=== PATIENT | female | born 1960 | race Hispanic/Latino ===

== ENCOUNTER 2017-08-26 04:12 | Inpatient (IN) | payer BC ==
[2017-08-26 04:14] VITALS: BMI 32.3
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
--- NOTE | 2017-08-26 05:31 | PCM.BM ---
<Kamryn Oliva - Last Filed: 08/26/17 05:28> Treatment Plan Problems - Problems identified on initial assessmt Suicide Attempt/S/I Date Initiated: 08/26/17 Time Initiated: 05:10 Assessment reference: NA Status: Active Depression Date Initiated: 08/26/17 Time Initiated: 05:10 Assessment reference: NA Status: Active Treatment assets and liabiliti Patient Assests: adapts well, cooperative, educated, insightful, motivated, resourceful, self-reliant, ADL independent, physically healthy, good support system, negotiates basic needs, good past tx response, financial stabiity, cognitively intact, good interpersonal skills Patient Liabilities: other ( has Stage 4 Sm. bowel Ca) - Milieu Protocol Maintain good personal hygiene: daily Encourage regular showers, daily Remind patient to perform daily oral care, daily Assist patient to perform ADL's Conduct patient checks and document Observation sheet: Q15 minutes Maintain personal safety: every shift Educate patient to report safety concerns to staff, every shift Monitor environment for contraband/sharps Medication safety: Monitor for expected outcome, potential side effects: every shift, Assess barriers to learning: every shift, Assess readiness for medication education: every shift <Rowan Huston - Last Filed: 08/27/17 08:54> - Diagnosis (1) Major depression Status: Acute Interventions: 08/27/17 08:54 * Assess/adjust medications daily and /or as needed * See patient on an individual basis 7x/week to assess symptoms of depression * Monitor for side effects & effectiveness of medications * <Clementina Wesotn - Last Filed: 08/27/17 11:05> Family Contact Family involvement: Family/SO is involved Family contact: Patient declines to allow family contact at present - Goals for Treatment Patient goals for treatment: "I want to go home soon." Discharge/Continuing Care - Education Needs Education Needs: Patient Medication, Patient Coping Skills - Discharge Discharge Criteria: Tolerates medication w/o severe side effects, Free of Suicidal thoughts Discharge to:: Home, With Family - Treatment Team Participation Discussed with Family/SO: No Was Patient/Family/SO present at Treatment Team Meeting: Yes
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
[2017-08-26] MEDS: Venlafaxine 75 mg ER Cap PO SCH (13:09)
[2017-08-27] MEDS: Venlafaxine 75 mg ER Cap PO SCH (09:27)
--- NOTE | 2017-08-27 12:11 | PCM.PYCHPN ---
Psychiatric Progress Note - Psychiatric Progress Note Patient seen today, length of contact: 16 min Patient Chief Complaint: "I am not sure" Problems Identified/Issues Discussed: The pt is seen, chart reviewed and case discussed She met with the team as well. Still depressed and anxious but feels like she is on the right direction Has vague SI but no plans or intention and will follow safety plan. No SEs from meds In touch with family Medication Change: Yes (Increase Effexor XR daily) Medical Record Reviewed: Yes Mental Status Examination - Cognitive Function Orientation: Person, Place, Situation, Time Memory: Intact Attention: WNL Concentration: Poor Association: WNL Fund of Knowledge: WNL - Mood Mood: Depressed, Anxious - Affect Affect: Constricted - Speech Speech: Appropriate, Soft - Formal Thought Process Formal Thought Process: No Impairment - Suicidal Ideation Suicidal Ideation: Yes Plan: No plan, no intention and contracts for safety - Homicidal Ideation Homicidal Ideation: No Goal/Treatment Plan - Goal/Treatment Plan Need for Continued Stay: Severe depression anxiety, Discharge may exacerbated symptoms, Severe functional impairment Progress Toward Problem(s) and Goals/Treatment Plan: Effexor XR 75, then 75+37.5, then 150, then 150+75 (on d/c) Increased Abilify to 10 mg Consider [place] (anti-suicide, mood stabilizagtion) Prn medications All risks, benefits and alternatives of medications, including no medications, discussed and the patient understood and agreed. Attend groups and activities Individual therapy Psychoeducation and support Encourage compliance with meds and after care Refer to outpatient program or private psychiatrist Add outpatient indiv psychotherapy! She agreed Teach healthy lifestyle methods, i.e. diet, exercise, meditation Estimated Date of D/C: 08/30/16
[2017-08-28] MEDS ORDERED: Venlafaxine 37.5 mg ER Cap PO SCH (10:00)
[2017-08-28] MEDS: Venlafaxine 75 mg ER Cap PO SCH (10:19)
[2017-08-28] MEDS ORDERED: Influenza Vaccine 60 mcg/0.5 mL SYR (4YR UP) IM ONE (10:25)
[2017-08-28] MEDS ORDERED: Pneumococcal 23-Valent Vaccine IM ONE (10:30)
--- NOTE | 2017-08-28 12:11 | PCM.PYCHPN ---
Psychiatric Progress Note - Psychiatric Progress Note Patient seen today, length of contact: 17 min Patient Chief Complaint: "I am not well" Problems Identified/Issues Discussed: The pt is seen, chart reviewed and case discussed The patient is still feeling depressed, at times hopeless. No acute suicide plans or intention but has vague ideation. Appetite is okay, energy is slowly getting better but her sleep was not good. Effexor increased today and will be increased again tomorrow and the other day. Aftercare discussed; will resume his psychiatrist but also add individual psychotherapy. CBT used Medication Change: Yes (Increase Effexor XR daily) Medical Record Reviewed: Yes Mental Status Examination - Cognitive Function Orientation: Person, Place, Situation, Time Memory: Intact Attention: WNL Concentration: Poor Association: WNL Fund of Knowledge: WNL - Mood Mood: Depressed, Anxious - Affect Affect: Constricted - Speech Speech: Appropriate, Soft - Formal Thought Process Formal Thought Process: No Impairment - Suicidal Ideation Suicidal Ideation: Yes Plan: No plans or intentions. Will follow safety plan - Homicidal Ideation Homicidal Ideation: No Goal/Treatment Plan - Goal/Treatment Plan Need for Continued Stay: Severe depression anxiety, Discharge may exacerbated symptoms, Severe functional impairment Progress Toward Problem(s) and Goals/Treatment Plan: Effexor XR 75+37.5 now, then 150, then 150+75 (on d/c) Increased Abilify to 10 mg Consider [place] (anti-suicide, mood stabilization) Prn medications All risks, benefits and alternatives of medications, including no medications, discussed and the patient understood and agreed. Attend groups and activities Individual therapy Psychoeducation and support Encourage compliance with meds and after care Refer to outpatient program or private psychiatrist Add outpatient indiv psychotherapy! She agreed Teach healthy lifestyle methods, i.e. diet, exercise, meditation Estimated Date of D/C: 08/31/16 If changed, why: Still very depressed
[2017-08-28 21:03] LABS: SQUAMOUS EPITHIAL 6 /hpf (0-5); URINE BILIRUBIN NEGATIVE (NEGATIVE); URINE BLOOD 3+ (NEGATIVE); URINE CALCIUM OXALATE CRYSTALS MOD /hpf (<OCC); URINE CLARITY Hazy (Clear); URINE COLOR Red (YELLOW); URINE GLUCOSE (UA) NORMAL (Normal); URINE LEUKOCYTE ESTERASE TRACE Leu/uL (Negative); URINE NITRATE NEGATIVE (NEGATIVE); URINE PROTEIN 2+ mg/dL (NEGATIVE); URINE UROBILINOGEN NORMAL mg/dL (0.2-1.0)
[2017-08-29] MEDS: Venlafaxine 150 mg ER Cap PO SCH (09:52)
--- NOTE | 2017-08-29 14:53 | PCM.PYCHPN ---
Psychiatric Progress Note - Psychiatric Progress Note Patient seen today, length of contact: 16 min Patient Chief Complaint: "I am tired" Problems Identified/Issues Discussed: The pt is seen, chart reviewed and case discussed The patient is still feeling depressed, at times hopeless. No acute suicide plans or intention but has vague ideation and it's "getting better". How to cope discussed. Effexor increased today to 150 mg and will be increased again tomorrow and the other day until 225 mg/d for now Aftercare discussed; will resume his psychiatrist but also add individual psychotherapy. CBT used again Socially she keeps to self - discussed Medication Change: Yes (Increase Effexor XR daily) Medical Record Reviewed: Yes Mental Status Examination - Cognitive Function Orientation: Person, Place, Situation, Time Memory: Intact Attention: WNL Concentration: Poor Association: WNL Fund of Knowledge: WNL - Mood Mood: Depressed, Anxious - Affect Affect: Constricted (even a little blunted at times) - Speech Speech: Appropriate, Soft - Formal Thought Process Formal Thought Process: No Impairment - Suicidal Ideation Suicidal Ideation: Yes - Homicidal Ideation Homicidal Ideation: No Goal/Treatment Plan - Goal/Treatment Plan Need for Continued Stay: Severe depression anxiety, Discharge may exacerbated symptoms, Severe functional impairment Progress Toward Problem(s) and Goals/Treatment Plan: Effexor XR now 150, then 150+27.5 and then 225 (on d/c) Abilify to 10 mg Consider [place] (anti-suicide, mood stabilization) Prn medications All risks, benefits and alternatives of medications, including no medications, discussed and the patient understood and agreed. Attend groups and activities Individual therapy Psychoeducation and support Encourage compliance with meds and after care Refer to outpatient program or private psychiatrist Add outpatient indiv psychotherapy! She agreed Teach healthy lifestyle methods, i.e. diet, exercise, meditation Estimated Date of D/C: 08/31/16
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
[2017-08-29 20:12] LABS: BASO # 0.1 K/uL (0.0-0.2); BASO % 0.9 % (0.0-2.0); EOS # 0.1 K/uL (0.0-0.7); EOS % 0.6 % (0.0-4.0); HEMOGLOBIN 13.3 g/dL (11.0-16.0); LYMPH # 1.4 K/uL (1.0-4.3); LYMPH % 15.5 % (20.0-40.0); MEAN CELL VOLUME 84.3 fL (81.0-99.0); MEAN CORPUSCULAR HEMOGLOBIN 29.4 pg (27.0-31.0); MEAN CORPUSCULAR HGB CONC 34.9 g/dL (33.0-37.0); MEAN PLATELET VOLUME 8.1 fL (7.2-11.7); MONO # 0.8 K/uL (0.0-0.8); MONO % 9.4 % (0.0-10.0); NEUT # 6.6 K/uL (1.8-7.0); NEUT % 73.6 % (50.0-75.0); RBC 4.51 Mil/uL (3.80-5.20); RED CELL DISTRIBUTION WIDTH 13.4 % (11.5-14.5); WHITE BLOOD COUNT 8.9 K/uL (4.8-10.8)
[2017-08-29 20:34] LABS: ALB/GLOB RATIO 1.3 (1.0-2.1); ALBUMIN 3.8 g/dL (3.5-5.0); ALT/SGPT 56 U/L (9-52); AST/SGOT 32 U/L (14-36); BLOOD UREA NITROGEN 10 mg/dL (7-17); CALCIUM 9.2 mg/dl (8.6-10.4); GFR AFRICAN-AMERICAN > 60; GFR NON-AFRICAN AMERICAN > 60; MAGNESIUM 1.9 mg/dL (1.6-2.3)
[2017-08-30 01:27] LABS: BARBITURATES, UR NEGATIVE (NEGATIVE); OPIATES, UR NEGATIVE (NEGATIVE); PHENCYCLIDINE, UR NEGATIVE (NEGATIVE)
[2017-08-30 07:24] LABS: HDL CHOLESTEROL 37 mg/dL (30-70)
[2017-08-30 07:35] LABS: LDL CHOLESTEROL 102 mg/dL (0-129)
[2017-08-30] MEDS ORDERED: Venlafaxine 37.5 mg ER Cap PO SCH (10:00)
[2017-08-30] MEDS: Venlafaxine 150 mg ER Cap PO SCH (10:07)
--- NOTE | 2017-08-30 12:50 | CARD ---
APPROVED REPORT EKG Measurement Heart [id number] <Conclusion> Sinus rhythm Cannot rule out Inferior infarct, age undetermined Abnormal ECG
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
--- NOTE | 2017-08-30 20:07 | CP.PCM.PCO ---
Physician Communication Note - Physician Communication Note Physician Communication Note: See above
--- NOTE | 2017-08-30 22:17 | PCM.PYCHPN ---
Psychiatric Progress Note - Psychiatric Progress Note Patient seen today, length of contact: 16 min Patient Chief Complaint: "I am OK" Problems Identified/Issues Discussed: The pt is seen, chart reviewed and case discussed Her family visited and found her still depressed and even suspected she was hiding her real thoughts about suicide The pt had attempted suicide and her family believes her psychiatrist was not helpful They agree with therapy and more frequent visits. PT, too agrees, but she is aloof and somewhat evasive She is OOB and is observed to be slightly more animated when she was playing with other patients, but spends most of her time in bed sleeping or just lying down. Affect is still flat and odd. She denies acute SI but admits to being depressed. She claims her children is the reason she stays alive. No plans No delusions or halluc. She agreed to increase Effox. one last time and add [place] to augment (and as a nj precaution) Risks discussed - understood Medication Change: Yes (Increase Effexor XR daily, add lithium) Medical Record Reviewed: Yes Mental Status Examination - Cognitive Function Orientation: Person, Place, Situation, Time Memory: Intact Attention: WNL Concentration: Poor Association: WNL Fund of Knowledge: WNL - Mood Mood: Depressed, Anxious - Affect Affect: Blunted - Speech Speech: Appropriate, Soft - Formal Thought Process Formal Thought Process: No Impairment - Suicidal Ideation Suicidal Ideation: Yes - Homicidal Ideation Homicidal Ideation: No Goal/Treatment Plan - Goal/Treatment Plan Need for Continued Stay: Severe depression anxiety, Discharge may exacerbated symptoms, Severe functional impairment Progress Toward Problem(s) and Goals/Treatment Plan: Effexor XR tomorrow and on: 225 mg/d Abilify to 10 mg Started moderate dose [place] (anti-suicide, mood stabilization) Prn medications All risks, benefits and alternatives of medications, including no medications, discussed and the patient understood and agreed. Attend groups and activities Individual therapy Psychoeducation and support Encourage compliance with meds and after care Refer to outpatient program or private psychiatrist Add outpatient indiv psychotherapy! She agreed Teach healthy lifestyle methods, i.e. diet, exercise, meditation Estimated Date of D/C: 09/03/16 If changed, why: Very depressed still
[2017-08-31] MEDS: Venlafaxine 150 mg ER Cap PO SCH (09:39)
[2017-08-31] MEDS: Venlafaxine 75 mg ER Cap PO SCH (10:04)
--- NOTE | 2017-08-31 12:41 | PCM.PYCHPN ---
Psychiatric Progress Note - Psychiatric Progress Note Patient seen today, length of contact: 20 min Patient Chief Complaint: "I am OK" Problems Identified/Issues Discussed: The pt is seen, chart reviewed and case discussed She seems to have mild catatonic sxs today: in bed, not leaving for meals, affect flat, not talking unless spoken to. Ativan 1 mg TID started. Effexor XR is now 225 mg [place] was also started yesterday Denies suicidal ideation but she is not reliable, she is checked every 15 minutes and more . Medication Change: Yes (see HPI) Medical Record Reviewed: Yes Mental Status Examination - Cognitive Function Orientation: Person, Place, Situation, Time Memory: Intact Attention: Poor Concentration: Poor Association: WNL Fund of Knowledge: WNL - Mood Mood: Depressed, Anxious - Affect Affect: Flat - Speech Speech: Appropriate, Soft - Formal Thought Process Formal Thought Process: No Impairment - Suicidal Ideation Suicidal Ideation: No - Homicidal Ideation Homicidal Ideation: No Goal/Treatment Plan - Goal/Treatment Plan Need for Continued Stay: Severe depression anxiety, Discharge may exacerbated symptoms, Severe functional impairment Progress Toward Problem(s) and Goals/Treatment Plan: Effexor XR tomorrow and on: 225 mg/d Abilify to 10 mg Ativan for catatonic sxs Started moderate dose [place] (anti-suicide, mood stabilization) Prn medications All risks, benefits and alternatives of medications, including no medications, discussed and the patient understood and agreed. Attend groups and activities Individual therapy Psychoeducation and support Encourage compliance with meds and after care Refer to outpatient program or private psychiatrist Add outpatient indiv psychotherapy! She agreed Teach healthy lifestyle methods, i.e. diet, exercise, meditation Estimated Date of D/C: 09/03/16
[2017-09-01] MEDS: Venlafaxine 150 mg ER Cap PO SCH (09:40)
[2017-09-01] MEDS: Venlafaxine 75 mg ER Cap PO SCH (09:40)
--- NOTE | 2017-09-01 17:13 | PCM.PYCHPN ---
Psychiatric Progress Note - Psychiatric Progress Note Patient seen today, length of contact: 15 minutes Patient Chief Complaint: I feel little lethargic but I feel better. Problems Identified/Issues Discussed: Patient seen, chart reviewed, case discussed with the staff. Issues related to illness and treatment were discussed with the patient. Reported compliant with treatment with no adverse affects. Patient appeared better but still has little catatonia. Aftercare discussed with the patient. Patient will continue with her private psychiatrist outside. At the time of evaluation, patient was awake alert and oriented 3, had no delusions, no auditory or visual hallucinations, no suicidal ideations or homicidal ideations. Medical Problems: None reported Diagnostic Results: Reviewed DSM 5 Symptoms Update: Improving with treatment Medication Change: No Medical Record Reviewed: Yes Consults ordered or reviewed: Review Mental Status Examination - Cognitive Function Orientation: Person, Place, Situation, Time Memory: Intact Attention: WNL Concentration: WNL Association: [facility] Fund of Knowledge: [facility] Decription of patient's judgement and insights: Fair - Mood Mood: Depressed (Less than before) - Affect Affect: Depressed - Speech Speech: Appropriate - Formal Thought Process Formal Thought Process: No Impairment Psychotic Thoughts and Behaviors: None - Suicidal Ideation Suicidal Ideation: No - Homicidal Ideation Homicidal Ideation: No Goal/Treatment Plan - Goal/Treatment Plan Need for Continued Stay: Remain at risks for inpatient hospitalization, Discharge may exacerbated symptoms, Severe functional impairment Progress Toward Problem(s) and Goals/Treatment Plan: Patient education Supportive therapy Continue treatment as before After discharge from the hospital, patient will have follow-up with her private psychiatrist outside. Estimated Date of D/C: 09/03/16 - Smoking Cessation Smoking Cessation Initiated: No
[2017-09-02] MEDS: Venlafaxine 150 mg ER Cap PO SCH (09:50)
[2017-09-02] MEDS: Venlafaxine 75 mg ER Cap PO SCH (09:51)
--- NOTE | 2017-09-02 13:17 | PCM.PYCHPN ---
Psychiatric Progress Note - Psychiatric Progress Note Patient seen today, length of contact: 15 minutes Patient Chief Complaint: I feel depressed and lethargic. Problems Identified/Issues Discussed: Patient seen, chart reviewed, case discussed with the staff. Issues related to illness and treatment were discussed with the patient. Reported compliant with treatment with no adverse affects. Patient reported still feeling depressed and lethargic. According to staff patient was isolative, withdrawn and confined to her room. Encouraged patient to come out of her bed attend groups and other activities on the unit. Aftercare discussed with the patient. Patient will continue with her private psychiatrist outside. At the time of evaluation, patient was awake alert and oriented 3, had no delusions, no auditory or visual hallucinations, no suicidal ideations or homicidal ideations. Medical Problems: None reported Diagnostic Results: Reviewed DSM 5 Symptoms Update: Some improvement with treatment Medication Change: No Medical Record Reviewed: Yes Consults ordered or reviewed: Review Mental Status Examination - Cognitive Function Orientation: Person, Place, Situation, Time Memory: Intact Attention: WNL Concentration: WNL Association: [facility] Fund of Knowledge: [facility] Decription of patient's judgement and insights: Fair - Mood Mood: Depressed (Less than before) - Affect Affect: Depressed - Speech Speech: Appropriate - Formal Thought Process Formal Thought Process: No Impairment Psychotic Thoughts and Behaviors: None - Suicidal Ideation Suicidal Ideation: No - Homicidal Ideation Homicidal Ideation: No Goal/Treatment Plan - Goal/Treatment Plan Need for Continued Stay: Remain at risks for inpatient hospitalization, Discharge may exacerbated symptoms, Severe functional impairment Progress Toward Problem(s) and Goals/Treatment Plan: Patient education Supportive therapy Continue treatment as before After discharge from the hospital, patient will have follow-up with her private psychiatrist outside. Estimated Date of D/C: 09/03/16 - Smoking Cessation Smoking Cessation Initiated: No
[2017-09-03 06:31] VITALS: O2SAT 97
[2017-09-03] MEDS: Venlafaxine 150 mg ER Cap PO SCH (09:50)
--- NOTE | 2017-09-03 10:52 | PCM.BM ---
<JuanClementina Kee - Last Filed: 09/03/17 10:52> Treatment Plan Problems - Problems identified on initial assessmt Suicide Attempt/S/I Date Initiated: 08/26/17 Time Initiated: 05:10 Assessment reference: NA Status: Active Depression Date Initiated: 08/26/17 Time Initiated: 05:10 Assessment reference: NA Status: Active Treatment assets and liabiliti Patient Assests: adapts well, cooperative, educated, insightful, motivated, resourceful, self-reliant, ADL independent, physically healthy, good support system, negotiates basic needs, good past tx response, financial stabiity, cognitively intact, good interpersonal skills Patient Liabilities: other ( has Stage 4 Sm. bowel Ca) - Milieu Protocol Maintain good personal hygiene: daily Encourage regular showers, daily Remind patient to perform daily oral care, daily Assist patient to perform ADL's Conduct patient checks and document Observation sheet: Q15 minutes Maintain personal safety: every shift Educate patient to report safety concerns to staff, every shift Monitor environment for contraband/sharps Medication safety: Monitor for expected outcome, potential side effects: every shift, Assess barriers to learning: every shift, Assess readiness for medication education: every shift Milieu Narrative: Patient education Supportive therapy Continue treatment as before After discharge from the hospital, patient will have follow-up with her private psychiatrist outside. Family Contact Family involvement: Family/SO is involved Family contact: Patient agrees to contact Family contact name: Mayra Stafford-daughter Family contacted how many times per week?: 2 Family contact comment: "I believe my mother needs to be hospitalized for a longer period of time. I'm afraid she will hurt herself." - Goals for Treatment Patient goals for treatment: "I need help." Patient's family/SO goals for treatment: "We want our mother to not be suicidal when she is discharged." Discharge/Continuing Care - Education Needs Education Needs: Patient Medication, Patient Coping Skills - Discharge Discharge Criteria: Tolerates medication w/o severe side effects, Free of Suicidal thoughts Discharge to:: Home, With Family - Treatment Team Participation Patient/Family/SO Statement: Patient education Supportive therapy Continue treatment as before After discharge from the hospital, patient will have follow-up with her private psychiatrist outside. Discussed with Family/SO: No Was Patient/Family/SO present at Treatment Team Meeting: Yes Treatment Plan Review - Problem Suicide Attempt/S/I Time Initiated: 05:10 Depression Time Initiated: 05:10 - Discharge / Continuing Care Discharge to:: Home, With Family Behavioral Health Services: Outpatient therapy Health Needs: Medications/Rx <Charisma Johnson - Last Filed: 09/03/17 11:55> Treatment Plan Review - Problem Suicide Attempt/S/I Date Initiated: 09/03/17 Progress toward outcomes: improved <Rowan Huston - Last Filed: 09/03/17 12:46> - Diagnosis (1) Major depression Status: Acute Interventions: 09/03/17 12:46 * Assess/adjust medications daily and /or as needed * See patient on an individual basis 7x/week to assess symptoms of depression * Monitor for side effects & effectiveness of medications * * Assess/adjust medications daily and /or as needed * See patient on an individual basis 7x/week to assess level of manic behaviors and stability * Discuss risks, benefits, side effects and alternatives of medications *
--- NOTE | 2017-09-03 12:51 | PCM.PYCHPN ---
Psychiatric Progress Note - Psychiatric Progress Note Patient seen today, length of contact: 20 min Patient Chief Complaint: "I am not well but better" Problems Identified/Issues Discussed: The pt is seen, chart reviewed and case discussed She is somewhat better than Sunday; more out of bed and smiling but still looks depressed. Denies suicidal ideation, plan or intention. However, since she also wants to be discharged "real bad" she may be hiding some symptoms. She is informed on her rights and d/c is likely scheduled for Sunday, depending on her continued improvement. No manic or psychotic sxs except for blunted affect She was visited by her family this weekend, she says it went well Not catatonic today - ativan decreased and she c/o sedation Li level in AM along with other labs SW is making appts Medication Change: Yes (see hpi) Medical Record Reviewed: Yes Mental Status Examination - Cognitive Function Orientation: Person, Place, Situation, Time Memory: Intact Attention: WNL Concentration: WNL Association: WNL Fund of Knowledge: WNL - Mood Mood: Depressed (Less than before), Anxious - Affect Affect: Blunted, Depressed - Speech Speech: Appropriate - Formal Thought Process Formal Thought Process: No Impairment - Suicidal Ideation Suicidal Ideation: No - Homicidal Ideation Homicidal Ideation: No Goal/Treatment Plan - Goal/Treatment Plan Need for Continued Stay: Remain at risks for inpatient hospitalization, Severe depression anxiety, Discharge may exacerbated symptoms, Severe functional impairment Progress Toward Problem(s) and Goals/Treatment Plan: Effexor XR is 300 mg now - we will monitor her BP and SEs Abilify to 10 mg Ativan for catatonic sxs Started moderate dose [place] (anti-suicide, mood stabilization) - level in AM Prn medications All risks, benefits and alternatives of medications, including no medications, discussed and the patient understood and agreed. Attend groups and activities Individual therapy Psychoeducation and support Encourage compliance with meds and after care Refer to outpatient program or private psychiatrist Add outpatient indiv psychotherapy! She agreed Teach healthy lifestyle methods, i.e. diet, exercise, meditation Estimated Date of D/C: 09/05/16 If changed, why: Still depressed
[2017-09-04 08:43] LABS: ALB/GLOB RATIO 1.3 (1.0-2.1); ALBUMIN 3.6 g/dL (3.5-5.0); ALT/SGPT 39 U/L (9-52); AST/SGOT 23 U/L (14-36); BLOOD UREA NITROGEN 12 mg/dL (7-17); CALCIUM 9.3 mg/dl (8.6-10.4); GFR AFRICAN-AMERICAN > 60; GFR NON-AFRICAN AMERICAN > 60
[2017-09-04] MEDS: Venlafaxine 150 mg ER Cap PO SCH ×2 (09:53→12:39)
--- NOTE | 2017-09-04 22:41 | PCM.PYCHPN ---
Psychiatric Progress Note - Psychiatric Progress Note Patient seen today, length of contact: 22 min Patient Chief Complaint: "I am up and down" Problems Identified/Issues Discussed: The pt is seen, chart reviewed and case discussed Staff think that she is hiding her emotions from us, but she denies and says she is still depressed but not suicidal. Yet, she skips some meals, does not participate or socialize, has flat affect, slow TP, but at the same time she is less catatonic, denies SI and smiles when spoken to. She agrees with meds - slightly half-heartedly - but refuses the option of ECT. TMS and other aug. strategies discussed. She is more optimistic than before and agreed with a family meeting tomorrow. Labs came, Li is 0.4, others are WNL but vit D is low/normal Medication Change: Yes (increase lithium, add vit D) Medical Record Reviewed: Yes Mental Status Examination - Cognitive Function Orientation: Person, Place, Situation, Time Memory: Intact Attention: WNL Concentration: WNL Association: WNL Fund of Knowledge: WNL - Mood Mood: Depressed (Less than before), Anxious - Affect Affect: Blunted, Depressed - Speech Speech: Appropriate - Formal Thought Process Formal Thought Process: No Impairment - Suicidal Ideation Suicidal Ideation: No - Homicidal Ideation Homicidal Ideation: No Goal/Treatment Plan - Goal/Treatment Plan Need for Continued Stay: Remain at risks for inpatient hospitalization, Severe depression anxiety, Discharge may exacerbated symptoms, Severe functional impairment Progress Toward Problem(s) and Goals/Treatment Plan: Effexor XR is 300 mg now - we will monitor her BP and SEs Abilify to 10 mg Ativan for catatonic sxs [place] is now 900 mg/d Add Vit D and folate Prn medications All risks, benefits and alternatives of medications, including no medications, discussed and the patient understood and agreed. Attend groups and activities Individual therapy Psychoeducation and support Encourage compliance with meds and after care Refer to outpatient program or private psychiatrist Add outpatient indiv psychotherapy! She agreed Teach healthy lifestyle methods, i.e. diet, exercise, meditation Estimated Date of D/C: 09/07/17
[2017-09-05 06:31] VITALS: TEMP 98
[2017-09-05] MEDS: Venlafaxine 150 mg ER Cap PO SCH (09:29)
[2017-09-05] MEDS ORDERED: Ergocalciferol 50,000 Intl Units Cap PO SCH (10:00)
--- NOTE | 2017-09-05 12:58 | PCM.PYCHPN ---
Psychiatric Progress Note - Psychiatric Progress Note Patient seen today, length of contact: 28 min Patient Chief Complaint: "I am getting better" Problems Identified/Issues Discussed: The pt is seen, chart reviewed and case discussed A family meeting held with the pt, her and daughter. They reported that he pt had similar episodes in the past and did not f/u and went back to [facility]. She now says she feels different and more improved than before and she is OK with her meds. She denied SI and agrees with safety plan After care is arranged Doses increased Medication Change: Yes (increase lithium, add vit D) Medical Record Reviewed: Yes Mental Status Examination - Cognitive Function Orientation: Person, Place, Situation, Time Memory: Intact Attention: WNL Concentration: WNL Association: WNL Fund of Knowledge: WNL - Mood Mood: Depressed (Less than before), Anxious - Affect Affect: Blunted, Depressed - Speech Speech: Appropriate - Formal Thought Process Formal Thought Process: No Impairment - Suicidal Ideation Suicidal Ideation: No - Homicidal Ideation Homicidal Ideation: No Goal/Treatment Plan - Goal/Treatment Plan Need for Continued Stay: Remain at risks for inpatient hospitalization, Severe depression anxiety, Discharge may exacerbated symptoms, Severe functional impairment Progress Toward Problem(s) and Goals/Treatment Plan: Effexor XR is 300 mg now - we will monitor her BP and SEs Abilify to 10 mg Ativan for catatonic sxs Carbon is now 900 mg/d Add Vit D and folate Prn medications All risks, benefits and alternatives of medications, including no medications, discussed and the patient understood and agreed. Attend groups and activities Individual therapy Psychoeducation and support Encourage compliance with meds and after care Refer to outpatient program or private psychiatrist Add outpatient indiv psychotherapy! She agreed Teach healthy lifestyle methods, i.e. diet, exercise, meditation Estimated Date of D/C: 09/07/17
[2017-09-06] MEDS: Venlafaxine 150 mg ER Cap PO SCH (09:45)
--- NOTE | 2017-09-06 13:43 | PCM.PYCHPN ---
Psychiatric Progress Note - Psychiatric Progress Note Patient seen today, length of contact: 19 min Patient Chief Complaint: "I am tired" Problems Identified/Issues Discussed: The pt is seen, chart reviewed and case discussed Feeling better; eating more, out of bed more and smiles more Still depressed but not suicidal. Discussed yesterday's family meeting and future plans Suicide prevention also discussed DC is scheduled for tomorrow, after care discussed [place] to be taken out next week - she understood Medication Change: Yes (decrease ativan) Medical Record Reviewed: Yes Mental Status Examination - Cognitive Function Orientation: Person, Place, Situation, Time Memory: Intact Attention: WNL Concentration: WNL Association: WNL Fund of Knowledge: WNL - Mood Mood: Depressed (Less than before), Anxious - Affect Affect: Blunted, Depressed - Speech Speech: Appropriate - Formal Thought Process Formal Thought Process: No Impairment - Suicidal Ideation Suicidal Ideation: No - Homicidal Ideation Homicidal Ideation: No Goal/Treatment Plan - Goal/Treatment Plan Need for Continued Stay: Remain at risks for inpatient hospitalization, Severe depression anxiety, Discharge may exacerbated symptoms, Severe functional impairment Progress Toward Problem(s) and Goals/Treatment Plan: Effexor XR is 300 mg now - we will monitor her BP and SEs Abilify to 10 mg Ativan for catatonic sxs [place] is now 900 mg/d Add Vit D and folate Prn medications All risks, benefits and alternatives of medications, including no medications, discussed and the patient understood and agreed. Attend groups and activities Individual therapy Psychoeducation and support Encourage compliance with meds and after care Refer to outpatient program or private psychiatrist Add outpatient indiv psychotherapy! She agreed Teach healthy lifestyle methods, i.e. diet, exercise, meditation Estimated Date of D/C: 09/07/17
[2017-09-07 06:36] VITALS: BP 108/74; PULSE 91; RESP 18
[2017-09-07] MEDS: Venlafaxine 150 mg ER Cap PO SCH (09:27)
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
== END 2017-09-07 11:05 | disposition home or self-care (01) | DRG 885 ==
LOC: C.ER 04:12 → C.5E 04:42
PROVIDERS: ADMIT Psychiatry & Neurology Psychiatry; ATTEND Psychiatry & Neurology Psychiatry
PROC: GZ3ZZZZ Medication Management (ICD-10-PCS; principal; 2017-08-26)
PROC: GZHZZZZ Group Psychotherapy (ICD-10-PCS; 2017-08-26)
PROC: GZ72ZZZ Family Psychotherapy (ICD-10-PCS; 2017-08-26)
PROC: GZ56ZZZ Individual Psychotherapy, Supportive (ICD-10-PCS; 2017-08-26)
DX: F33.2 Major depressive disorder, recurrent severe without psychotic features (principal); R45.851 Suicidal ideations; F31.9 Bipolar disorder, unspecified; F41.1 Generalized anxiety disorder; S31.119D Laceration without foreign body of abdominal wall, unspecified quadrant without penetration into peritoneal cavity, subsequent encounter; S61.512D Laceration without foreign body of left wrist, subsequent encounter; X78.1XXD Intentional self-harm by knife, subsequent encounter; E78.5 Hyperlipidemia, unspecified; E78.00 Pure hypercholesterolemia, unspecified; Z91.5 Personal history of self-harm; Z87.891 Personal history of nicotine dependence; Z90.49 Acquired absence of other specified parts of digestive tract; Z79.899 Other long term (current) drug therapy